=== PATIENT | female | born 1960 | race Caucasian/White ===

== ENCOUNTER → 2016-08-09 | Day surgery (SDC) | payer MEDICARE, OTHER ==
[~2016-08-09] MED LIST: ALBUTEROL17 GM INH; ALL DAY ALLERGY10 M1; ALLERGY SHOT SQ; AMITRIPTYLINE H25 MG; AMITRIPTYLINE H25 MG PO; AMITRIPTYLINE H50 MG PO; DOC-Q-LACE100 MG PO; DULCOLAX5 MG; FLEXERIL10 M1; FLEXERIL10 MG PO; HYDROCHLOROTH12.5 M1 PO; HYDROCHLOROTHIA25 MG PO; IRON1 TA1; IRON1 TAB PO; LASIX20 MG; LASIX20 MG PO; LOTENSIN20 MG PO; LYRICA75 MG PO; METOPROLOL TART25 MG PO; NAPROSYN-EC500 M1; NEURONTIN600 MG; NORFLEX100 M1 PO; PRILOSEC PO; PRILOSEC20 M1 PO; PRILOSEC20 MG PO; PROBIOTIC1 EAC1 PO; VOLTAREN75 MG PO; XYZAL5 MG PO; ZESTRIL10 MG PO; ZYRTEC10 M2 PO
--- NOTE | ~2016-08-09 | OR ---
Unit #: [id number] #: [id number] Patient: FERNANDO ESPINAL [id number] [address] [place], [place] [address] [id number] O MR#: [id number] NAME: FERNANDO ESPINAL ROOM: Date of Procedure: 08/09/2016 Admission Date: 08/09/2016 Surgeon: Richard Lemos Jr., M.D. : 1960 Attending Physician: Richard Lemos Jr., M.D. Primary Care Physician: Wojciech Champion M.D. OPERATIVE REPORT INDICATIONS FOR PROCEDURE The patient is a 56-year-old white female who presents desiring screening colonoscopy. Her last colonoscopy was over 5 years ago or possibly longer. She has had a known family history for Crohn disease, but has had no change in bowel habits. She has a known past history for diverticulosis and diverticulitis. PREOPERATIVE DIAGNOSIS Desired screening colonoscopy, rule out pathology. POSTOPERATIVE DIAGNOSIS Left-sided diverticulosis without diverticulitis and no other abnormalities to the cecum. ANESTHESIA MAC anesthesia. PROCEDURE PERFORMED Flexible colonoscopy to the cecum. DESCRIPTION OF PROCEDURE The patient was positioned in Hyman position with left side down. After being given MAC anesthesia, digital rectal examination was performed, which revealed no palpable mass or tenderness. No blood or stool in the rectal ampulla. The Olympus colonoscope was advanced up in the rectum and retroflexed down to the area of the anorectal region. There was no evidence of any fissures and no significant internal hemorrhoids. The scope was then straightened and advanced up in the rectosigmoid, in the sigmoid and descending colon areas, where there were multiple diverticula without evidence of diverticulitis. The scope was then advanced around the splenic flexure and the transverse colon, around hepatic flexure and the ascending colon, down to the area of the cecum. The light from the tip of the scope could be seen transilluminating through right lower quadrant abdominal wall area. Multiple attempts advancing the scope up the distal ileum were unsuccessful. The scope was slowly removed. There were no tumors, polyps, cancer, or AVMs. No evidence of colitis or acute diverticulitis. The caliber of the colon appeared normal throughout. The scope was removed. The patient tolerated the procedure well and was discharged in satisfactory condition. Dictated by... Unit #: [id number] #: [id number] Patient: FERNANDO ESPINAL Richard Lemos Jr., M.D. JMB/yrn TD: 08/09/2016 08:18 JOB #: [id number] CC: Wojciech Champion M.D. OPERATIVE REPORT Page 1 of 1 X Richard Lemos MD X PROCEDURE OPERATIVE NOTE
== END | disposition home or self-care (01) ==
LOC: COPS 07-05 07:30
PROVIDERS: Surgery
PROC: 0DJD8ZZ Inspection of Lower Intestinal Tract, Via Natural or Artificial Opening Endoscopic (ICD-10-PCS; principal; 2016-08-09 07:00)
DX: Z12.11 Encounter for screening for malignant neoplasm of colon (principal); K57.30 Diverticulosis of large intestine without perforation or abscess without bleeding; Z84.89 Family history of other specified conditions; K21.9 Gastro-esophageal reflux disease without esophagitis; I10 Essential (primary) hypertension; D64.9 Anemia, unspecified; M19.90 Unspecified osteoarthritis, unspecified site; G47.30 Sleep apnea, unspecified; J44.9 Chronic obstructive pulmonary disease, unspecified; M25.50 Pain in unspecified joint; M54.9 Dorsalgia, unspecified; Z79.899 Other long term (current) drug therapy; Z79.1 Long term (current) use of non-steroidal anti-inflammatories (NSAID); Z82.49 Family history of ischemic heart disease and other diseases of the circulatory system; Z83.3 Family history of diabetes mellitus; Z98.890 Other specified postprocedural states; Z98.51 Tubal ligation status
CPT/HCPCS: J2250